=== PATIENT | female | born 1940 | race Caucasian/White ===

== ENCOUNTER 2018-02-17 18:08 | Emergency (ER) | payer MEDICARE ==
[2018-02-17 20:11] LABS: INR 2.76; PROTHROMBIN TIME 29.8 SECONDS (12.1-14.4)
[2018-02-17] MEDS: NORCO, ANEXSIA 5/325MG TABLET (HYDROcodone/ACETAMINOPHEN) PO (20:47)
== END 2018-02-17 21:49 | disposition home or self-care (01) ==
LOC: M ED 18:08
DX: M17.12 Unilateral primary osteoarthritis, left knee (principal); I48.91 Unspecified atrial fibrillation; Z96.652 Presence of left artificial knee joint; Z96.651 Presence of right artificial knee joint; Z79.01 Long term (current) use of anticoagulants; Z79.899 Other long term (current) drug therapy
CPT/HCPCS: 73564

== ENCOUNTER 2018-02-20 12:59 | Emergency (ER) | payer MEDICARE ==
[2018-02-20 15:09] LABS: HEMATOCRIT 44.1 % (36.0-47.0); HEMOGLOBIN 14.4 g/dl (12.0-15.5); MEAN CORPUSCULAR HEMOGLOBIN 31.9 pg (27.0-33.0); MEAN CORPUSCULAR HGB CONC 32.7 g/dl (32.0-36.5); MEAN CORPUSCULAR VOLUME 97.8 fl (80.0-96.0); PLATELET COUNT, AUTOMATED 280 10^3/uL (150-450); RED BLOOD COUNT 4.51 10^6/uL (4.00-5.40); RED CELL DISTRIBUTION WIDTH 14.1 % (11.5-14.5); WHITE BLOOD COUNT 6.3 10^3/uL (4.0-10.0)
[2018-02-20 15:21] LABS: INR 2.65; PROTHROMBIN TIME 28.8 SECONDS (12.1-14.4)
[2018-02-20 15:28] LABS: ANION GAP 8 MEQ/L (8-16); BLOOD UREA NITROGEN 17 MG/DL (7-18); CALCIUM LEVEL 9.2 MG/DL (8.8-10.2); CARBON DIOXIDE LEVEL 26 MEQ/L (21-32); CHLORIDE LEVEL 111 MEQ/L (98-107); CREATININE FOR GFR 0.83 MG/DL (0.55-1.30); GLOMERULAR FILTRATION RATE > 60.0 (>39); GLUCOSE, FASTING 78 MG/DL (70-100); SODIUM LEVEL 145 MEQ/L (136-145)
== END 2018-02-20 17:42 | disposition home or self-care (01) ==
LOC: M ED 12:59
DX: M71.22 Synovial cyst of popliteal space [Baker], left knee (principal); K06.8 Other specified disorders of gingiva and edentulous alveolar ridge; E78.9 Disorder of lipoprotein metabolism, unspecified; Z79.01 Long term (current) use of anticoagulants
CPT/HCPCS: 93971